=== PATIENT | female | born 1995 | race American Indian/Alaskan Native ===

== ENCOUNTER 2022-04-07 09:02 | Emergency (ER) | payer SELFPAY ==
[2022-04-07 09:40] VITALS: BP 143/78
[2022-04-07 11:15] LABS: Bacteria,Urine 1+ /HPF (Negative); Bilirubin,Urine NEG (Negative); Blood,Urine SM (Negative); Color,Urine Yellow (Yellow); Mucus,Urine FEW /HPF; Protein,Urine <15 mg/dL mg/dL (Negative); Urobilinogen,Urine < 2.0 mg/dL (<2.0)
[2022-04-07 11:15] LABS: Hematocrit 36.3 % (30.3-42.9); Hemoglobin 11.9 gm/dl (10.1-14.3); Mean Corpuscular HGB Conc 33 % (30-34); Mean Corpuscular Volume 84 fl (79-97); Platelet Count 218 K/mm3 (140-440); Red Blood Count 4.31 M/mm3 (3.65-5.03); Red Cell Distribution Width 13.7 % (13.2-15.2)
[2022-04-07 13:03] LABS: Basophils % (Manual) 0 % (0.0-1.8); Total Cells Counted 100
[2022-04-07 13:04] LABS: Anisocytosis 1+; Platelet Estimate Consistent w Auto
--- NOTE | 2022-04-07 13:08 | Ultrasound Report ---
ULTRASOUND OBSTETRIC INDICATION / CLINICAL INFORMATION: preg, vaginal bleeding. Clinical Gestational Age (GA) in weeks, days: 8, 0 TECHNIQUE: Transabdominal and Transvaginal. COMPARISON: None available. FINDINGS: GESTATIONAL SAC: Well-defined oval shape and intrauterine in location. YOLK SAC: No significant abnormality. EMBRYO/FETUS: No significant abnormality. - [place]-Rump Length = 0.5 cm = 6, 2 weeks, days - Heart Rate, beats per minute (if present) = 117 ADNEXA: No significant abnormality. FREE FLUID: None. ADDITIONAL FINDINGS: None. IMPRESSION: 1. Single, living intrauterine with estimated sonographic age of 6, 0 weeks, days. Signer Name: Jon Cameron DO Signed: 04/07/2022 1:04 PM Workstation Name: [id number]
--- NOTE | 2022-04-07 13:08 | Ultrasound Report ---
ULTRASOUND OBSTETRIC INDICATION / CLINICAL INFORMATION: preg, vaginal bleeding. Clinical Gestational Age (GA) in weeks, days: 8, 0 TECHNIQUE: Transabdominal and Transvaginal. COMPARISON: None available. FINDINGS: GESTATIONAL SAC: Well-defined oval shape and intrauterine in location. YOLK SAC: No significant abnormality. EMBRYO/FETUS: No significant abnormality. - [place]-Rump Length = 0.5 cm = 6, 2 weeks, days - Heart Rate, beats per minute (if present) = 117 ADNEXA: No significant abnormality. FREE FLUID: None. ADDITIONAL FINDINGS: None. IMPRESSION: 1. Single, living intrauterine with estimated sonographic age of 6, 0 weeks, days. Signer Name: Jon Cameron DO Signed: 04/07/2022 1:04 PM Workstation Name: [id number]
--- NOTE | 2022-04-07 16:04 | Emergency Department Report ---
ED HPI - General Chief complaint: Vaginal Bleeding Stated complaint: VAG BLEEDING/PREG Time Seen by Provider: 04/07/22 15:17 Source: patient, family Mode of arrival: Ambulatory Limitations: No Limitations - History of Present Illness Initial comments: 26-year-old black female with a past medical history of diabetes presents to the emergency department for evaluation of vaginal bleeding during and itching to the vaginal area. States that she had a positive home test but has noted some pinkish spotting that started yesterday. She also complains of itching to the vaginal area with some sloughing of her skin from area that has been going on for over a month. She states that she has had some intermittent suprapubic pain but denies fever, nausea, and vomiting. She states that her last menstrual period was February 10. Patient states that she stopped taking her metformin because she ran out of it but did not get a refill because she did not know if it was safe in . She is requesting refill of metformin if it is okay to take in . MD Complaint: abdominal pain, vaginal bleeding, other (Itching to vaginal area) -: days(s) Location: abdomen Severity scale (0 -10): 3 Quality: aching Consistency: intermittent Associated symptoms: vaginal bleeding, abdominal pain. denies: nausea/vomiting, vaginal discharge, dysuria, headache, vision changes, malaise, dysparuenia, rash, seizure, shortness of breath, syncope, weakness Vaginal bleeding: light :: Yes OB History - Current : no complications Last menstrual period: 03/12/22 Pre-miguel angel care: none - Related Data : 1 Para: 0 Previous Rx's Medication Instructions Recorded Last Taken Type Ondansetron [Zofran Odt] 4 mg PO Q8HR PRN #12 tab.rapdis 04/07/22 Unknown Rx Terconazole 45 gm VG QHS 7 Days #1 tube 04/07/22 Unknown Rx cephALEXin [Keflex] 500 mg PO BID #14 cap 04/07/22 Unknown Rx metFORMIN [Glucophage] 500 mg PO BID #60 tab 04/07/22 Unknown Rx Allergies Allergy/AdvReac Type Severity Reaction Status Date / Time No Known Allergies Allergy Unverified 04/07/22 09:35 ED Review of Systems ROS: Stated complaint: VAG BLEEDING/PREG Other details as noted in HPI Comment: All other systems reviewed and negative Constitutional: denies: chills, fever Eyes: denies: vision change Respiratory: denies: cough, shortness of breath, SOB with exertion, SOB at rest Cardiovascular: denies: chest pain, palpitations, dyspnea on exertion Gastrointestinal: abdominal pain. denies: nausea, vomiting, diarrhea, hematemesis, melena, hematochezia Genitourinary: denies: urgency, dysuria, frequency, hematuria, discharge Musculoskeletal: denies: back pain Skin: denies: rash, lesions Neurological: denies: headache, weakness ED Past Medical Hx - Past Medical History Previous Medical History?: Yes Hx Diabetes: Yes - Surgical History Past Surgical History?: No - Medications Home Medications: Home Medications Medication Instructions Recorded Confirmed Last Taken Type Ondansetron [Zofran Odt] 4 mg PO Q8HR PRN #12 tab.rapdis 04/07/22 Unknown Rx Terconazole 45 gm VG QHS 7 Days #1 tube 04/07/22 Unknown Rx cephALEXin [Keflex] 500 mg PO BID #14 cap 04/07/22 Unknown Rx metFORMIN [Glucophage] 500 mg PO BID #60 tab 04/07/22 Unknown Rx ED Physical Exam - General Limitations: No Limitations General appearance: alert, in no apparent distress - Head Head exam: Present: atraumatic, normocephalic - Eye Eye exam: Present: normal appearance. Absent: conjunctival injection - Neck Neck exam: Present: normal inspection. Absent: tenderness, lymphadenopathy - Respiratory Respiratory exam: Present: normal lung sounds bilaterally. Absent: respiratory distress, wheezes, rales, rhonchi, stridor, chest wall tenderness - Cardiovascular Cardiovascular Exam: Present: regular rate, normal heart sounds - GI/Abdominal GI/Abdominal exam: Present: soft, normal bowel sounds. Absent: distended, tende rness, guarding, rebound, rigid - External exam: Present: erythema. Absent: lesions - Extremities Exam Extremities exam: Present: normal inspection, normal capillary refill. Absent: pedal edema, joint swelling, calf tenderness - Back Exam Back exam: Present: normal inspection. Absent: CVA tenderness (R), CVA tenderness (L) - Neurological Exam Neurological exam: Present: alert, oriented X3, normal gait - Psychiatric Psychiatric exam: Present: normal affect, normal mood - Skin Skin exam: Present: warm, dry, intact, normal color ED Course Vital Signs 04/07/22 04/07/22 09:36 16:20 Temperature 99.6 F 98.6 F Pulse Rate 93 H 83 Respiratory 20 18 Rate Blood Pressure 143/78 143/78 [Right] O2 Sat by Pulse 100 100 Oximetry ED Medical Decision Making - Lab Data Result diagrams: 04/07/22 10:09 - Radiology Data Radiology results: report reviewed, image reviewed ultrasound: FINDINGS: GESTATIONAL SAC: Well-defined oval shape and intrauterine in location. YOLK SAC: No significant abnormality. EMBRYO/FETUS: No significant abnormality. - [place]-Rump Length = 0.5 cm = 6, 2 weeks, days - Heart Rate, beats per minute (if present) = 117 ADNEXA: No significant abnormality. FREE FLUID: None. ADDITIONAL FINDINGS: None. IMPRESSION: 1. Single, living intrauterine with estimated sonographic age of 6, 0 weeks, days. - Medical Decision Making 26-year-old black female with a past medical history of diabetes presents to the emergency department for evaluation of vaginal bleeding during and itching to the vaginal area. States that she had a positive home test but has noted some pinkish spotting that started yesterday. She also complains of itching to the vaginal area with some sloughing of her skin from area that has been going on for over a month. She states that she has had some intermittent suprapubic pain but denies fever, nausea, and vomiting. She states that her last menstrual period was February 10. Patient states that she stopped taking her metformin because she ran out of it but did not get a refill because she did not know if it was safe in . She is requesting refill of metformin if it is okay to take in . Physical exam unremarkable. Labs without any gross abnormalities and urine positive for urinary tract infection. ultrasound positive for IUP at 6 weeks without any acute abnormalities noted. Patient will be treated with 7-day course of Keflex for UTI along with 7-day course of [place] resolved for apparent yeast infection. She was given refill of metformin. Patient was encouraged to take medications as prescribed and follow-up with [facility] for further evaluation and management and return to the emergency department for any concerning symptoms. She verbalizes understanding of and agreement with plan of care. Critical care attestation.: If time is entered above; I have spent that time in minutes in the direct care of this critically ill patient, excluding procedure time. ED Disposition Clinical Impression: Vaginal bleeding in patient at less than 20 weeks gestation, Medication refill UTI (urinary tract infection) during Qualifiers: Trimester: first trimester Qualified Code(s): O23.41 - Unspecified infection of urinary tract in , first trimester Disposition: 01 HOME / SELF CARE / HOMELESS Is pt being admited?: No Does the pt Need Aspirin: No Condition: Stable Instructions: Urinary Tract Infection, Adult, [id number], and Urinary Tract Infection, Vaginal Bleeding During , First Trimester, [id number] Additional Instructions: Take medications as prescribed. Drink plenty of noncaffeinated fluids. Follow- up with [facility] for further evaluation and management. Return to the emergency department as needed. Prescriptions: Terconazole 45 gm VG QHS 7 Days #1 tube metFORMIN [Glucophage] 500 mg PO BID #60 tab cephALEXin [Keflex] 500 mg PO BID #14 cap Ondansetron [Zofran Odt] 4 mg PO Q8HR PRN #12 tab.rapdis PRN Reason: Nausea And Vomiting Referrals: [facility] [Provider Group] - 3-5 Days [facility] [Provider Group] - 3-5 Days [facility] [Provider Group] - 3-5 Days Forms: Work/School Release Form(ED) Time of Disposition: 16:08
== END 2022-04-07 16:25 | disposition home or self-care (01) ==
LOC: ED 09:02
DX: O20.9 Hemorrhage in early pregnancy, unspecified (principal); O23.41 Unspecified infection of urinary tract in pregnancy, first trimester; Z3A.08 8 weeks gestation of pregnancy; Z76.0 Encounter for issue of repeat prescription; E11.9 Type 2 diabetes mellitus without complications
CPT/HCPCS: 36415; 76801; 76817; 81001; 84702; 85007; 85025; 86900; 86901; 99284